=== PATIENT | female | born 1980 | race Caucasian/White ===

== ENCOUNTER 2019-03-28 08:45 | Outpatient (CLI) | payer OTHER, SELFPAY ==
--- NOTE | 2019-03-28 08:52 | IR_ITS ---
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 COMPARISON: No similar studies. FLUOROSCOPY TIME: 1.1 minutes. Procedure, risks and complications were explained to the patient. Risks including bleeding, infection , headaches, allergic reaction and seizures. Consent has been obtained. With the patient in prone position the skin over the lumbar region is cleansed with ChloraPrep and an esthetized with lidocaine. 22-gauge spinal needle is inserted into the thecal sac at the appropriate level determined by fluoroscopy. Omnipaque 240; 12 ml is injected slowly under fluoroscopy with no co mplications. Needle bevel is perpendicular to the longitudinal fibers of the dura. Stylet is reinsert ed prior to removal of the needle. Patient tolerated the procedure well. Patient will proceed to CT f or further evaluation. As indicated on the prior MRI, 4 lumbar vertebral bodies are present. This same number pattern will b e utilized for the myelogram. Normal lumbar alignment. No significant loss of disc space height or vertebral body height. With flex ion and extension there is no instability. Nerve roots are exiting without difficulty. Prior cholecystectomy. IR/[place] [id number] IMPRESSION: 1. Uncomplicated lumbar myelogram. 2. As described on the MRI only 4 lumbar type vertebral bodies are identified. Same numbering pattern will be utilized on the myelogram. 3. No significant stenosis or disc space disease. Please see CT report to hayes romo.
--- NOTE | 2019-03-28 08:52 | CT_ITS ---
WS: [id number] CT MYELOGRAM LUMBAR SPINE HISTORY: INTERVERTEBRAL DISC DISORDER WITH RADICULOPATHY OF LUMBOSACRAL SPINE. TECHNIQUE: Contiguous 2.5 mm axial imaging performed from T12 through the mid sacral level. Bone and soft tissue windows reviewed. Sagittal and coronal reformats are submitted and reviewed. DLP: 1933.[address] scans at [facility] use at least one of these dose optimization techniques: automat ed exposure control; mA and/or kV adjustment per patient size (includes targeted exams where dose is matched to clinical indication); or iterative reconstruction. COMPARISON: MRI 10/12/2017. 4 lumbar vertebral bodies have been described by MRI. This same numbering pattern will be utilized. L1-L4 normally aligned. No fractures or loss of disc space height or vertebral body height. No pars d efects. Nerve roots are well distributed in the thecal sac. L1-L2: Normal. L2-L3: Normal. L3-L4: Very minimal annular bulging without stenosis. L4-S1: Broad-based disc protrusion with slight flattening of the thecal sac. No significant stenosis. Paravertebral soft tissues are normal. Small amount of degenerative air in the SI joints bilaterally. No erosions. CT/CT lumbar spine w con [id number] IMPRESSION: 1. 4 lumbar type vertebral bodies as described by MRI on 10/12/2017. Similar nu mbering pattern used on the myelogram evaluation. 2. Minimal degenerative disc disease at L3-4 and L4 S1. No nerve root encroach ment or stenosis.
[2019-03-28] MEDS: iohexol 240 mg/mL 50 mL Btl INTRATHECA (09:45)
== END 2019-03-28 08:46 | disposition home or self-care (01) ==
PROVIDERS: Family Provider Family Medicine; PCP Family Medicine; Referring Provider Family Medicine; Visit Provider Licensed Practical Nurse
DX: M51.17 Intervertebral disc disorders with radiculopathy, lumbosacral region (principal); M47.896 Other spondylosis, lumbar region
CPT/HCPCS: 62304; 72120; 72132; J2001

== ENCOUNTER → 2019-04-18 08:31 | Outpatient (BNVA) | payer OTHER, SELFPAY | PROVIDERS: Family Provider Family Medicine; PCP Family Medicine; Visit Provider Anesthesiology | DX: M51.17 Intervertebral disc disorders with radiculopathy, lumbosacral region (principal); M79.652 Pain in left thigh; F17.210 Nicotine dependence, cigarettes, uncomplicated; Z79.891 Long term (current) use of opiate analgesic | CPT/HCPCS: 99214 ==

== ENCOUNTER → 2019-06-14 08:18 | Outpatient (BNVA) | payer OTHER, SELFPAY | PROVIDERS: Family Provider Family Medicine; PCP Family Medicine; Visit Provider Anesthesiology | DX: Z76.89 Persons encountering health services in other specified circumstances (principal) ==

== ENCOUNTER → 2020-02-20 15:22 | Outpatient (BNVA) | payer OTHER, SELFPAY | PROVIDERS: Family Provider Family Medicine; PCP Family Medicine; Visit Provider Emergency Medicine | DX: Z20.828 Contact with and (suspected) exposure to other viral communicable diseases (principal) | CPT/HCPCS: 87635 ==

== ENCOUNTER 2020-08-01 00:50 | Inpatient (IN) | payer SELFPAY ==
[2020-08-01] VITALS (107 sets, daily range): BP systolic 90–140; BP diastolic 46–91; PULSE 51–76; RESP 12–24; TEMP 36.5–37; O2SAT 92–99; BMI 35.7
--- NOTE | 2020-08-01 00:54 | CTR_ITS ---
PROCEDURE INFORMATION: Exam: CT Head Without Contrast Exam date and time: 08/01/2020 1:08 AM Age: 39 years old Clinical indication: Speech disturbance and weakness, extremity; Patient HX: Sudden onset of right sided weakness and aphasia. TECHNIQUE: Imaging protocol: Computed tomography of the head without contrast. Radiation optimization: All CT scans at this facility use at least one of these dose optimization techniques: automated exposure control; mA and/or kV adjustment per patient size (includes targeted exams where dose is matched to clinical indication); or iterative reconstruction. Other technique: STROKE PROTOCOL was implemented. COMPARISON: CT head wo con* [id number] 2015-11-29 08:18 RADIATION DOSE METRICS: Total DLP (mGy-cm): 839.33 FINDINGS: Brain: Normal. No hemorrhage. Unremarkable white matter. No mass effect. Cerebral ventricles: No ventriculomegaly. Bones/joints: Unremarkable. No acute fracture. Paranasal sinuses: Visualized sinuses are unremarkable. No fluid levels. Mastoid air cells: Visualized mastoid air cells are well aerated. Soft tissues: Unremarkable. CT/CT head wo con* [id number] IMPRESSION: No acute intracranial abnormality. ASSESSMENT: ASPECTS ([place] Stroke Program Early CT Score) is 10. Radiation Dose CTDIVOL = (mGy): DLP = 839.33 (mGy-cm)
--- NOTE | 2020-08-01 01:01 | ECG_ITS ---
[facility] Test Date: 2020-08-01 Pat Name: Latisha Christine Department: Room: 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 Measurements Intervals [place] Rate: 56 P: 30 CO: 167 QRS: 5 QRSD: 95 T: 29 QT: 400 QTc: 388 Interpretive Statements SINUS BRADYCARDIA WARNING: DATA QUALITY MAY AFFECT INTERPRETATION Compared to ECG 09/29/2016 16:37:50 Sinus rhythm no longer present Electronically Signed On 08-01-2020 23:45:26 CDT by Miller Wang M.D. [id number]
--- NOTE | 2020-08-01 01:03 | W.ED.NEUROSD ---
HPI - Neuro Symptoms/Deficit General: Chief Complaint: Neuro Symptoms/Deficit Stated Complaint: r sided numbess/difficulty speaking Time Seen by Provider: 08/01/20 00:55 Source: patient and family Mode of arrival: ambulatory Limitations: other History of Present Illness: HPI Narrative: 39-year-old female who is here with states starting last night at 11-11 30 was having all of a sudden severe slurred speech right-sided facial droop and weakness in the right side. states that he is unable to understand what she is saying except for few words. Patient here is trying to speak I can understand a few words but does have severe slurred speech. She is able to move her left side but has weakness of the right leg and right arm. Patient is unable to ambulate. She is no history of stroke in the past. Patient is not on any blood thinners. She denies headache. Patient is normotensive here. Denies any history of TIAs or stroke in the past. Associated symptoms: Deny chest pain, headache(s), nausea or vomiting Review of Systems Const: Denies: fever(s), chills, body aches or change in appetite Eyes: Denies: blurry vision or eye discomfort ENMT: Denies: throat pain or dental pain Card: Denies: chest pain Resp: Denies: dyspnea GI: Denies: abdominal pain, nausea, vomiting or diarrhea : Denies: dysuria Musc: Denies: neck pain or back pain Skin/Breast: Denies: rash Neuro: Reports: numbness in extremities, weakness in extremities and Slurred speech present; Denies: headache(s) Psych: Denies: depression Gab/Lymph: Denies: easy bruising All/Imm: Denies: urticaria PFSH ED PFSH: Medical History Chronic low back pain Encounter for long-term use of opiate analgesic Intervertebral disc disorder with radiculopathy of lumbosacral region Opioid contract exists Smoker Surgical History History of appendectomy History of cholecystectomy History of hysterectomy History of tubal ligation Family History Father Diabetes Hypertension Grandfather Lung cancer Other Cancer Social History (Updated 08/02/19 @ 08:34 by ANJANA Cortes Smoking and tobacco status: current every day smoker cigarettes Packs smoked per day: 0.5 Alcohol intake: never Lives independently: Yes Household members: spouse Marital status: Current occupational status: employed Current occupation: [employer] History of recent travel: No NIH stroke score NIHSS: Level Of Consciousness - 1a: 0 Level Of Consciousness Questions - 1b: Both Correct Level Of Consciousness Commands - 1c: Both Correct Best Gaze - 2: Normal Visual Dawson - 3: Partial Hemianopia Facial Palsy - 4: Partial Paralysis Motor Arm Right - 5: Drift Motor Arm Left - 5: No Drift Motor Leg Right - 6: Effort Against [place] Motor Leg Left - 6: No Drift Limb Ataxia - 7: Absent Sensory - 8: Normal Best Language - 9: Severe Aphasia Dysarthia - 10: Severe Dysarthia Extinction And Inattention - 11: 0 Score: Total Score: 10 Physical Exam Const: COMMON NORMALS: no acute distress and healthy appearing HENMT: COMMON NORMALS: normocephalic and atraumatic HEAD & SCALP: normocephalic and atraumatic Eye: COMMON NORMALS: Equal, round and reactive pupils present and EOMs intact bilaterally PUPIL: Yes Equal, round and reactive pupils present Neck/C-Spine: COMMON NORMALS: full ROM and supple Chest: COMMONS NORMALS: normal inspection of the chest and normal palpation of entire chest wall Resp: COMMON NORMALS: normal respiratory effort, No retractions, No use of accessory muscles and clear to auscultation bilaterally AUSCULTATION: clear to auscultation bilaterally Cardio: COMMON NORMALS: regular rate, regular rhythm and No murmurs present (Cardio) RATE: regular rate RHYTHM: regular rhythm GI: COMMON NORMALS: Normal to inspection, nondistended, normoactive bowel sounds present, Soft to palpation, non-tender and no masses PALPATION: Yes Soft to palpation Extremity: COMMON NORMALS: normal to inspection and full ROM Neuro: SPEECH: abnormal speech GAIT: No Normal gait present MOTOR EXAM: No 5/5 motor strength present throughout Psych: COMMON NORMALS: mental status grossly normal, Normal thought process present and cooperative THOUGHT PROCESS: Normal thought process present Skin: COMMON NORMALS: no rashes or lesions noted and no wounds GENERAL SKIN EXAM: no rashes or lesions noted Course Vital Signs: Vital signs: Vital Signs Temperature 97.9 F 08/01/20 00:58 Pulse Rate 56 L 05/20/21 02:09 Respiratory Rate 18 08/01/20 02:09 Blood Pressure 123/55 08/01/20 02:09 Pulse Oximetry 99 08/01/20 02:09 MDM - Neuro Symptoms/Deficit MDM Narrative: Medical decision making narrative: Patient presents here with likely CVA. Patient was given TPA here on 129 and is having improvements of her symptoms. Her blood pressures been under control. CTA showed no large clot. Spoke to hospitalist will admit to the ICU. I spoke to Dr. Peraza as well and will consult her officially. Lab Data: Labs: Lab Results 08/01/20 08/01/20 08/01/20 Range/Units 01:11 01:21 01:21 WBC 9.2 (4.0-10.0) 10^3/ uL RBC 4.46 (4.1-5.3) 10^6/u L Hgb 13.1 (11.5-15.3) g/dL Hct 38.4 (37.0-47.0) % MCV 86.1 (81-99) fL MCH 29.4 (28.0-34.0) pg MCHC 34.1 (30.0-36.0) g/dL RDW 12.4 (12.1-15.1) % Plt Count 267 (130-400) 10^3/c mm MPV 10.7 H (7.4-10.4) fL Neut % (Auto) 58.3 % Lymph % (Auto) 31.4 % [place] % (Auto) 6.1 % Eos % (Auto) 3.5 % Baso % (Auto) 0.4 % Neut # (Auto) 5.36 (1.8-7.7) 10^3/u L Lymph # (Auto) 2.9 (0.8-4.8) 10^3/u L [place] # (Auto) 0.6 (0.2-0.9) 10^3/u L Eos # (Auto) 0.3 (0.0-0.8) 10^3/u L Baso # (Auto) 0.0 (0.0-0.1) 10^3/u L Nucleated RBC % (a uto) 0 % Nucleated RBCs # 0.0 /100WBC PT 12.70 (12.1-14.9) SECO NDS INR 0.93 (0.8-1.2) APTT 27.6 (23.9-36.7) SECO NDS Sodium (136-145) mmol/L Potassium (3.5-5.1) mmol/L Chloride (98-107) mmol/L Carbon Dioxide (22-29) mmol/L Anion Gap (5-19) BUN (6-20) mg/dL Creatinine (0.5-0.9) mg/dL GFR Calculation (90-130) mL/min Glucose (65-115) mg/dL POC Glucose 105 (70-110) mg/dL Calculated Osmolal ity (285-295) mOsm/k g Calcium (8.5-10.5) mg/dL Total Bilirubin (0.15-1.2) mg/dL AST (0-32) U/L ALT (0-33) U/L Alkaline Phosphata se (35-105) IU/L Total Protein (6.6-8.7) g/dL Albumin (3.5-5.2) g/dL Globulin (1.3-4.6) g/dL 08/01/20 Range/Units 01:21 WBC (4.0-10.0) 10^3/ uL RBC (4.1-5.3) 10^6/u L Hgb (11.5-15.3) g/dL Hct (37.0-47.0) % MCV (81-99) fL MCH (28.0-34.0) pg MCHC (30.0-36.0) g/dL RDW (12.1-15.1) % Plt Count (130-400) 10^3/c mm MPV (7.4-10.4) fL Neut % (Auto) % Lymph % (Auto) % [place] % (Auto) % Eos % (Auto) % Baso % (Auto) % Neut # (Auto) (1.8-7.7) 10^3/u L Lymph # (Auto) (0.8-4.8) 10^3/u L [place] # (Auto) (0.2-0.9) 10^3/u L Eos # (Auto) (0.0-0.8) 10^3/u L Baso # (Auto) (0.0-0.1) 10^3/u L Nucleated RBC % (a uto) % Nucleated RBCs # /100WBC PT (12.1-14.9) SECO NDS INR (0.8-1.2) APTT (23.9-36.7) SECO NDS Sodium 141 (136-145) mmol/L Potassium 4.1 (3.5-5.1) mmol/L Chloride 107 (98-107) mmol/L Carbon Dioxide 24 (22-29) mmol/L Anion Gap 14.1 (5-19) BUN 14 (6-20) mg/dL Creatinine 0.5 (0.5-0.9) mg/dL GFR Calculation 138.1 H (90-130) mL/min Glucose 104 (65-115) mg/dL POC Glucose (70-110) mg/dL Calculated Osmolal ity 293 (285-295) mOsm/k g Calcium 8.8 (8.5-10.5) mg/dL Total Bilirubin 0.2 (0.15-1.2) mg/dL AST 11 (0-32) U/L ALT 10 (0-33) U/L Alkaline Phosphata se 65 (35-105) IU/L Total Protein 6.9 (6.6-8.7) g/dL Albumin 4.1 (3.5-5.2) g/dL Globulin 2.8 (1.3-4.6) g/dL Imaging Data^: CT Head: Attestation: I personally reviewed and interpreted this imaging study as follows: My impression: No acute normality Other CT: Attestation: I personally reviewed and interpreted this imaging study as follows: My impression: CT angio head neck no acute normality Critical Care Time Critical Care Time: Critical Care Time: Yes Total Critical Care Time: 35 Attestation: This case had a high probability of a clinically significant, sudden, or life threatening deterioration of this patient's condition which required my full and direct attention, intervention and personal management. 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
[2020-08-01 01:16] LABS: Glucose Point of Care 105 mg/dL (70-110)
--- NOTE | 2020-08-01 01:21 | CTR_ITS ---
PROCEDURE INFORMATION: Exam: CT Angiography Neck With Contrast Exam date and time: 08/01/2020 1:37 AM Age: 39 years old Clinical indication: Speech disturbance and weakness; Patient HX: Sudden onset of RT side weakness and aphasia. TECHNIQUE: Imaging protocol: Computed tomography angiography of the neck with contrast. 3D rendering (Not supervised by radiologist): MIP and/or 3D reconstructed images were created x the technologist. Radiation optimization: All CT scans at this facility use at least one of these dose optimization techniques: automated exposure control; mA and/or kV adjustment per patient size (includes targeted exams where dose is matched to clinical indication); or iterative reconstruction. Contrast material: OMNI 350; Contrast volume: 95 ml; Contrast route: INTRAVENOUS (IV); COMPARISON: No relevant prior studies available. RADIATION DOSE METRICS: Total DLP (mGy-cm): 2199.69 FINDINGS: Right common carotid artery: No stenosis. No dissection or occlusion. Right internal carotid artery: No stenosis of the extracranial segment. No dissection or occlusion. Right external carotid artery: No occlusion or stenosis of the origin. Right vertebral artery: No stenosis. No dissection or occlusion. Left common carotid artery: No stenosis. No dissection or occlusion. Left internal carotid artery: No stenosis of the extracranial segment. No dissection or occlusion. Left external carotid artery: No occlusion or stenosis of the origin. Left vertebral artery: No stenosis. No dissection or occlusion. Bones/joints: No acute fracture. Soft tissues: Normal. No significant soft tissue swelling. CT/CT angio headneck* [id number] IMPRESSION: Unremarkable. REFERENCES: NASCET CRITERIA. The degree of internal carotid artery stenosis is based on NASCET criteria. Normal is no stenosis. Mild is less than 50% stenosis. Moderate is 50-69% stenosis. Severe is 70% to 99% stenosis. Total occlusion is no detectable patent lumen. Radiation Dose CTDIVOL = (mGy): DLP = 2199.69 (mGy-cm)
[2020-08-01 01:28] LABS: Basophils % 0.4 %; Eosinophils # 0.3 10^3/uL (0.0-0.8); Eosinophils % 3.5 %; Hematocrit 38.4 % (37.0-47.0); Hemoglobin 13.1 g/dL (11.5-15.3); Lymphocytes # 2.9 10^3/uL (0.8-4.8); Lymphocytes % 31.4 %; Mean Corpuscular HGB Conc 34.1 g/dL (30.0-36.0); Mean Corpuscular Hemoglobin 29.4 pg (28.0-34.0); Mean Corpuscular Volume 86.1 fL (81-99); Mean Platelet Volume 10.7 fL (7.4-10.4); Monocytes # 0.6 10^3/uL (0.2-0.9); Monocytes % 6.1 %; Neutrophils # 5.36 10^3/uL (1.8-7.7); Neutrophils % 58.3 %; Nucleated Red Blood Cells % 0 %; Platelet Count 267 10^3/cmm (130-400); Red Blood Count 4.46 10^6/uL (4.1-5.3); Red Cell Distribution Width 12.4 % (12.1-15.1); White Blood Count 9.2 10^3/uL (4.0-10.0)
[2020-08-01] MEDS: iohexol 350 mg/mL 100 mL Btl IV (01:40)
[2020-08-01 01:52] LABS: Alanine Aminotransferase 10 U/L (0-33); Albumin Level 4.1 g/dL (3.5-5.2); Alkaline Phosphatase 65 IU/L (35-105); Aspartate Amino Transferase 11 U/L (0-32); Blood Urea Nitrogen 14 mg/dL (6-20); Calcium 8.8 mg/dL (8.5-10.5); Carbon Dioxide 24 mmol/L (22-29); Chloride 107 mmol/L (98-107); Globulin 2.8 g/dL (1.3-4.6); Glomerular Filtration Rate 138.1 mL/min (90-130); Glucose 104 mg/dL (65-115); INR 0.93 (0.8-1.2); Osmolality Calculated 293 mOsm/kg (285-295); Sodium 141 mmol/L (136-145); Total Bilirubin 0.2 mg/dL (0.15-1.2); Total Protein 6.9 g/dL (6.6-8.7)
[2020-08-01 01:53] LABS: Partial Thromboplastin Time 27.6 SECONDS (23.9-36.7)
[2020-08-01 01:57] LABS: Anion Gap 14.1 (5-19); Potassium 4.1 mmol/L (3.5-5.1)
[2020-08-01 02:47] LABS: Add Urine Microscopic? NO; Charge for UA Resulting for Rev
[2020-08-01 02:48] LABS: Urine Appearance Clear (CLEAR); Urine Color Yellow (Yellow)
[2020-08-01 02:49] LABS: Bilirubin Urine Neg (Negative); Blood Urine Neg (Negative); Glucose Urine UA Norm (Normal); Ketones Urine Negative (Negative); Leukocyte Esterase Urine Negative (Negative); Nitrate Urine Negative (Negative); Protein Urine Neg (Negative); Urobilinogen Urine Norm (Negative); pH Urine 6.5 (5-7)
[2020-08-01 02:58] LABS: Amphetamines Screen Urine Negative (Negative); Barbiturates Screen Urine Negative (Negative); Benzodiazepines Screen Urine Negative (Negative); Cocaine Screen Urine Negative (Negative); Opiate Screen Urine Negative (Negative); PCP Screen Urine Negative (Negative); THC Screen Urine Negative (Negative)
--- NOTE | 2020-08-01 02:59 | P.HP_ITS ---
Providers/Chief Complaint Admitting Physician: Isiah Catalan Primary Care Provider: Burak Goodman MD Chief Complaint: r sided numbess/difficulty speaking History of Present Illness Latisha Christine is a 39 year old female with no significant past medical history who presents to emergency room due to sudden onset of slurred speech, aphasia, right-sided facial droop and right-sided weakness. The symptoms started suddenly at about 11:30 PM. On presentation her NIH score was assessed at 10. Stroke alert was called. The patient underwent CT and CTA head and neck. No acute ab normalities were identified. Dr. Peraza, neurologist was contacted by ED physician. Decision was made to administer TPA. She already has received it. She reports some improvement of her symptoms. However she still has aphasia. History is mostly provided by her who is at the bedside. She reports weakness in the right upper and right lower extremity, right side of the face. She denies any similar episodes in the past. She denies any associated sensory loss or imbalance. No headache. No chest pain or shortness of breath. No nausea or vomiting. Review of Systems General: Reports: 10 or more systems reviewed and unremarkable except in HPI and below Medications/Allergies Allergies Allergy/AdvReac Type Severity Reaction Status Date / Time gabapentin AdvReac Mild night dennis Verified 08/01/20 01:21 PFSH Acute PFSH: Medical History Chronic low back pain Encounter for long-term use of opiate analgesic Intervertebral disc disorder with radiculopathy of lumbosacral region Opioid contract exists Smoker Surgical History History of appendectomy History of cholecystectomy History of hysterectomy History of tubal ligation Family History Father Diabetes Hypertension Grandfather Lung cancer Other Cancer Social History (Updated 08/02/19 @ 08:34 by Naz Dempsey LPN) Smoking and tobacco status: current every day smoker cigarettes Packs smoked per day: 0.5 Alcohol intake: never Lives independently: Yes Household members: spouse Marital status: Current occupational status: employed Current occupation: [employer] History of recent travel: No Vitals/I&O/Wt Last Vital Signs Temp 98.1 F 08/01/20 02:55 Pulse 62 05/20/21 02:55 Resp 18 08/01/20 02:55 BP 116/46 08/01/20 02:55 Pulse Ox 97 08/01/20 02:55 07/31/20 07/31/20 08/01/20 14:59 22:59 06:59 Intake Total 100 / 100 Balance 100 / 100 Weight last 48 hrs Weight 100.471 kg Physical Exam Narrative: EXAM NARRATIVE: Patient is awake alert oriented. No acute distress. Mood and affect are appropriate. Responses are adequate. Skin is warm and dry. Moist mucous membranes Eyes PERRL, extraocular muscles are intact. Facial symmetry with the weakness on the right side. 2-3 out of 5 weakness in the right upper extremity and right lower extremity. Cerebellar testing is limited due to weakness. Expressive aphasia is present. Neck is supple. No JVD Heart S1, S2, regular Lungs are clear to auscultation bilaterally Abdomen soft, nontender, bowel sounds are present Extremities no edema cyanosis or calf tenderness bilaterally Data : 08/01/20 01:21 08/01/20 01:21 Other Labs: Laboratory Results WBC 9.2 10^3/uL (4.0-10.0) 08/01/20 01:21 RBC 4.46 10^6/uL (4.1-5.3) 08/01/20 01:21 Hgb 13.1 g/dL (11.5-15.3) 08/01/20 01:21 Hct 38.4 % (37.0-47.0) 08/01/20 01:21 MCV 86.1 fL (81-99) 08/01/20 01:21 MCH 29.4 pg (28.0-34.0) 08/01/20 01:21 MCHC 34.1 g/dL (30.0-36.0) 08/01/20 01:21 RDW 12.4 % (12.1-15.1) 08/01/20 01:21 Plt Count 267 10^3/cmm (130-400) 08/01/20 01:21 MPV 10.7 fL (7.4-10.4) H 08/01/20 01:21 Neut % (Auto) 58.3 % 08/01/20 01:21 Lymph % (Auto) 31.4 % 08/01/20 01:21 [place] % (Auto) 6.1 % 08/01/20 01:21 Eos % (Auto) 3.5 % 08/01/20 01:21 Baso % (Auto) 0.4 % 08/01/20 01:21 Neut # (Auto) 5.36 10^3/uL (1.8-7.7) 08/01/20 01:21 Lymph # (Auto) 2.9 10^3/uL (0.8-4.8) 08/01/20 01:21 [place] # (Auto) 0.6 10^3/uL (0.2-0.9) 08/01/20 01:21 Eos # (Auto) 0.3 10^3/uL (0.0-0.8) 08/01/20 01:21 Baso # (Auto) 0.0 10^3/uL (0.0-0.1) 08/01/20 01:21 Nucleated RBC % (auto) 0 % 08/01/20 01: Nucleated RBCs # 0.0 /100WBC 08/01/20 01: PT 12.70 SECONDS (12.1-14.9) 08/01/20 01: INR 0.93 (0.8-1.2) 08/01/20 01: APTT 27.6 SECONDS (23.9-36.7) 08/01/20 01:21 Sodium 141 mmol/L (136-145) 08/01/20 01:21 Potassium 4.1 mmol/L (3.5-5.1) 08/01/20 01: Chloride 107 mmol/L (98-107) 08/01/20 01: Carbon Dioxide 24 mmol/L (22-29) 08/01/20 01:21 Anion Gap 14.1 (5-19) 08/01/20 01:21 BUN 14 mg/dL (6-20) 08/01/20 01:21 Creatinine 0.5 mg/dL (0.5-0.9) 08/01/20 01:21 GFR Calculation 138.1 mL/min (90-130) H 08/01/20 01:21 Glucose 104 mg/dL (65-115) 08/01/20 01:21 POC Glucose 105 mg/dL (70-110) 05/20/21 01:11 Calculated Osmolality 293 mOsm/kg (285-295) 08/01/20 01:21 Calcium 8.8 mg/dL (8.5-10.5) 08/01/20 01:21 Total Bilirubin 0.2 mg/dL (0.15-1.2) 08/01/20 01:21 AST 11 U/L (0-32) 08/01/20 01:21 ALT 10 U/L (0-33) 08/01/20 01:21 Alkaline Phosphatase 65 IU/L (35-105) 08/01/20 01:21 Total Protein 6.9 g/dL (6.6-8.7) 08/01/20 01:21 Albumin 4.1 g/dL (3.5-5.2) 08/01/20 01:21 Globulin 2.8 g/dL (1.3-4.6) 08/01/20 01:21 Urine Color Yellow (Yellow) 08/01/20 02:45 Urine Appearance Clear (CLEAR) 08/01/20 02:45 Urine pH 6.5 (5-7) 08/01/20 02:45 Ur Specific [place] 1.000 (1.005-1.030) L 08/01/20 02:45 Urine Protein Neg (Negative) 08/01/20 02:45 Urine Glucose (UA) Norm (Normal) 08/01/20 02:45 Urine Ketones Negative (Negative) 08/01/20 02:45 Urine Blood Neg (Negative) 08/01/20 02:45 Urine Nitrate Negative (Negative) 08/01/20 02:45 Urine Bilirubin Neg (Negative) 08/01/20 02:45 Urine Urobilinogen Norm mg/dL (Negative) 08/01/20 02:45 Ur Leukocyte Esterase Negative (Negative) 08/01/20 02:45 Urine Opiates Screen Negative ng/mL (Negative) 08/01/20 02:45 Ur Barbiturates Screen Negative ng/mL (Negative) 08/01/20 02:45 Ur Phencyclidine Scrn Negative ng/mL (Negative) 08/01/20 02:45 Ur Amphetamines Screen Negative ng/mL (Negative) 08/01/20 02:45 U Benzodiazepines Scrn Negative ng/mL (Negative) 08/01/20 02:45 Urine Cocaine Screen Negative ng/mL (Negative) 08/01/20 02:45 U Marijuana (THC) Screen Negative ng/mL (Negative) 08/01/20 02:45 Please see official radiology report for CT head and CTA head and neck when it is available. Ordering EKG. Please follow-up the results. A&P Additional A&P Information 39-year-old female with no significant past medical history who presents with expressive aphasia, right-sided weakness. NIH score on presentation is 10. Status post TPA. CVA. Status post TPA. Will go to ICU for monitoring. We will follow stroke protocol. Nicardipine drip as needed. However the blood pressure is stable at this time. The patient will be seen by Dr. Peraza in the morning. Lipitor, fasting lipids in the morning. MRI and echo. DVT prophylaxis. Tetanus status. No anticoagulation due to TPA. CODE STATUS. Full code. The plan of care was discussed with the patient and her at the bedside. They verbalized understanding and agreement. Critical care time spent on this encounter is 50 minutes Attestations Medical Necessity Statement*: Based on my assessment of patient's current condition she will require more than 2 midnights in the hospital. Coding Level of Care Code Acute Slot Floorperson for Ani Sparrow
--- NOTE | 2020-08-01 03:06 | ECG_ITS ---
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 Measurements Intervals [place] Rate: 60 P: 33 AR: 187 QRS: -5 QRSD: 104 T: 28 QT: 412 QTc: 412 Interpretive Statements SINUS RHYTHM INTERPRETATION BASED ON A DEFAULT AGE OF 40 YEARS Compared to ECG 09/29/2016 16:37:50 No significant changes Electronically Signed On 08-02-2020 0:05:04 CDT by Miller Wang M.D. [id number] f
[2020-08-01 05:23] LABS: Chol HDL Ratio 4.33 mg/dL (0.0-4.40); Cholesterol 186 mg/dL (0-200); HDL Cholesterol 43 mg/dL (60-100); LDL Cholesterol Calculated 123 mg/dL (50-129); LDL HDL Ratio 2.86 RATIO (0.00-3.22); Triglycerides 101 mg/dL (0-150)
[2020-08-01 05:49] LABS: Estmated Average Glucose 105; Hemoglobin A1C 5.3 % (4.0-6.0)
--- NOTE | 2020-08-01 06:31 | PC.NURSE ---
SHIFT SUMMARY Patient arrived on unit at 0305 this morning from ER by stretcher after receiving TPA at 0130 in the ER for right sided weakness. Upon arriving on floor TPA/Neuro checks were initiated by this nurse every 15 minutes for 2 hours, which stopped at 0330 and moved to every 30 minute neuro checks for 6 hours. Alert and oriented x4. Needle stick precautions in place due to TPA administration.
--- NOTE | 2020-08-01 07:56 | P.PNCC_ITS ---
Stroke Alert Activation ED Arrival Date: 08/01/20 ED Arrival Time: 00:58 ED Physican at Bedside: 00:58 Last Known Normal/at Baseline: 1-2 hours ago Other Last Known Well Infomation: Stroke team was activated at 1 AM for this 39-year-old woman who arrived with right hemiplegia and aphasia. She was seen immediately by Dr. Turcios. CT scan of the head did not show an acute bleed or any other abnormalities. Her CAT scan was completed at 0108. Her blood pressure was slightly elevated. Dr. Turcios and I agreed that based upon her high NIH stroke scale score of 16 and lack of any contraindications, TPA should be recommended and administered. That was done and she was admitted to ICU. Stroke Alert Activated by: Triage. She came through the front door. Stroke Alert Activation Time: 01:00 Stroke MD @ Bedside Time: 01:01 NIH Stroke Scale Time: 01:05 NIH Stroke Scale Score: NIH Stroke Scale Score: 10 Stroke Alert Data/Treatment Time to CT of Head: 01:01 CT Results Time: 01:08 CT Impression: normal Stroke Risk Factors: obesity and depression tPA Started Time: tPA Started - Time: 01:32 tPA Admin Prior to Arrival: No Standardized Stroke Orders Used: Yes Critical Care Time Critical Care Time: less than 30 mins Additional information about critical care time: Telemetry stroke A&P Assessment and plan (1) Left acute arterial ischemic stroke, MCA (middle cerebral artery): 39-year-old woman presented with symptoms of left middle cerebral artery stroke including nearly flaccid right hemiplegia and aphasia. Her blood pressure was elevated but within the parameters for TPA administration. Her CT of the head did not show an acute hemorrhage. Her [id number] glucose was unremarkable. Dr. Turcios reviewed the history with me and the physical findings and we agreed that she should receive TPA. TPA was administered within 30 minutes of her arrival. There was delay because she came through the front door and had to have an IV started. Her symptoms were already improving before she left the emergency department and she is admitted to ICU. 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
--- NOTE | 2020-08-01 08:05 | PC.OT ---
OT EVALUATION ORDERS RECEIVED. DUE TO TPA AT 0130 PER CHART; WILL HOLD OT EVALUATION UNTIL TOMORROW.
--- NOTE | 2020-08-01 08:46 | PC.CHAP ---
Pastoral Care Encounter/Spiritual Assessment Type of Contact [] Declined ripsawyer visit [] Patient/Family/Request visit [] Outpatient visit [] Follow-up visit [] Physician referral [] Code/Alert [x] Routine visit [] Staff referral [] Actively dying [] Patient sleeping [x] Family support [] [] Out of room [] Palliative care [] [x] Receiving care in room [] Pre-surgical visit [] Trauma [] Long length of stay [x] ICU visit [] Other: Relational/Emotional Strength [] Patient feels connected with others/family/visitors/staff [] Distress [] Loneliness/isolation [] Abandonment Spirituality of Patient [] Person of [place] [] Attends Voodoo of their [place] [] Believes in Prayer [] Reads Bible or Sikh materials [] There are Spiritual issues to be addressed Laundry Routeman Interventions [x] Prayer [] Active listening [] Non-anxious presence [] Spiritual/emotional support [] Crisis/trauma care [] Spiritual counseling [] Bereavement support [] Provided bereavement packet [] Provided Bible/devotional materials [] Provided toy/stuffed animal, coloring book to patient or family member [] Provided Communion [] Anointing/[place] [] Salvation [x] Completed spiritual assessment [] Other: Impact on Illness or Injury [] Angry [] Fearful [] Anxious [] Often cries [] Exhaustion [] Unable to work [] Unable to attend mu-ism [] Unable to walk/stand [] Unable to read [] Unable to drive [] Unable to eat/drink [] Unable to sleep [] Unable to be with family [] Patient intubated [] Other: Summary Time spent with patient
[2020-08-01] MEDS: acetaminophen 325 mg Tablet 650 MG PO ×4 (08:54→23:46)
[2020-08-01] MEDS: diazePAM 5 mg Tablet 10 MG PO (09:54)
--- NOTE | 2020-08-01 10:15 | MR_ITS ---
WS: [id number] MRI HEAD WITH CONTRAST TECHNIQUE: Sagittal T1, T2 axial, T2 axial FLAIR, axial susceptibility weighted imaging, axial diffus ion weighted images, and coronal T2 images were obtained. Pre and post-T1 axial and post T1 coronal i mages. ADC and FSPGR images. CLINICAL INFORMATION: CVA COMPARISON: CT and CTA August 01, 2020 FINDINGS: Some images degraded by patient motion. No evidence of restricted diffusion to suggest acute ischemia . Ventricular system and basal cisterns are patent. No hemosiderin on susceptibly weighted images. No rmal posterior fossa. Normal vascular flow voids at the skull base. No extra-axial fluid collections. No evidence of mass or mass effect. Mild mucosal thickening with partial opacification of the paranasal sinuses worse in the ethmoid air cells. Mastoid air cells are well aerated. No suspicious intracranial signal abnormalities. Normal gr ay-white differentiation. Normal optic chiasm and pituitary infundibulum. Temporal lobes and hippocampal formations are normal in appearance. No abnormal gadolinium enhancement. Normal dural venous sinuses. MR/MR head wo/w con [id number] IMPRESSION: 1. No evidence of restricted diffusion to suggest acute ischemia. 2. No suspicious intracranial signal abnormalities. 3. No hemosiderin on susceptibly weighted images. 4. No abnormal gadolinium enhancement. 5. Mucosal thickening with inflammatory changes in the paranasal sinuses worse in the ethmoid air cells.
[2020-08-01] MEDS: gadobenate dimeglumine 20 mL vial IV (11:14)
--- NOTE | 2020-08-01 16:37 | PM.PN ---
Subjective Subjective: Interval history: overnight labs and H&P reviewed. Medications: Reviewed: Yes Vitals/I&O/Wt Last Vital Signs Temp 97.7 F 08/01/20 11:30 Pulse 67 08/01/20 14:30 Resp 18 08/01/20 14:30 BP 120/73 08/01/20 14:30 Pulse Ox 96 08/01/20 14:30 08/01/20 08/01/20 08/01/20 06:59 14:59 22:59 Intake Total 100 / 100 300 / 300 Output Total 1300 / 1300 Balance 100 / 100 -1000 / -1000 Weight last 48 hrs Weight 100.471 kg Physical Exam Narrative: EXAM NARRATIVE: GEN: Awake, alert and oriented, no acute distress CVS: S1S2 N RS: CTA B/L Abd: Soft, nt/nd , bs+ FINANCIAL INTERN: R side hemiparesis, slurred speech Data : 08/01/20 01:21 08/01/20 01:21 A&P Additional A&P Information 39-year-old female with no significant past medical history who presents with expressive aphasia, right-sided weakness. NIH score on presentation is 10. Status post TPA. CVA. Status post TPA overnight. [address] head tonight at 11pm. to start ASA 24 hrs post tPA. BP currently well controlled slightly improving right sided weakness DVT prophylaxis. contraindicated for now CODE STATUS. Full code. 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
[2020-08-01] MEDS: atorvastatin 40 mg Tablet 20 MG PO (21:18)
--- NOTE | 2020-08-01 23:00 | CTR_ITS ---
PROCEDURE INFORMATION: Exam: CT Head Without Contrast Exam date and time: 08/01/2020 11:42 PM Age: 39 years old Clinical indication: Weakness, extremity; Right; Additional info: 24 hr post tpa follow up TECHNIQUE: Imaging protocol: Computed tomography of the head without contrast. Radiation optimization: All CT scans at this facility use at least one of these dose optimization techniques: automated exposure control; mA and/or kV adjustment per patient size (includes targeted exams where dose is matched to clinical indication); or iterative reconstruction. COMPARISON: CT head wo con* [id number] 08/01/2020 1:08 AM RADIATION DOSE METRICS: Total DLP (mGy-cm): 825.42 FINDINGS: Brain: No evidence of acute infarct. No mass or mass effect. No intra axial hemorrhage. No extra axial fluid collection or hemorrhage. Cerebral ventricles: Symmetric and without enlargement. Bones/joints: No acute fracture. Paranasal sinuses: Visualized sinuses show inflammatory mucosal disease. Mastoid air cells: Visualized mastoid air cells are well aerated. Soft tissues: No concerning abnormalities. CT/CT head wo con* [id number] IMPRESSION: No acute intracranial abnormality. Radiation Dose CTDIVOL = (mGy): DLP = 825.42 (mGy-cm)
[2020-08-02] VITALS (21 sets, daily range): BP systolic 88–118; BP diastolic 32–75; PULSE 52–71; RESP 15–17; TEMP 36.6–37.1; O2SAT 93–97
[2020-08-02] MEDS: zolpidem 5 mg Tablet PO (00:32)
[2020-08-02] MEDS: acetaminophen 325 mg Tablet 650 MG PO ×3 (04:14→13:54)
[2020-08-02 05:50] LABS: Estmated Average Glucose 100; Hemoglobin A1C 5.1 % (4.0-6.0)
--- NOTE | 2020-08-02 06:00 | USCV_ITS ---
Nanci Latisha Age: 39 Gender: F : 1980 Exam Date: 08/02/2020 05:19 Ordering Phys: Isiah Catalan MD Technologist: FATMATA Exam Location: [facility] [place] Indication: CVA BP: 102 / 65 HR: 54 Rhythm: Sinus Technical Quality: Adequate MEASUREMENTS (Male / Female) Normal Values 2D ECHO LV Diastolic Diameter PLAX 4.0 cm 4.2 - 5.9 / 3.9 - 5.3 cm LV Systolic Diameter PLAX 2.4 cm LV Chamber Size 3.1 cm IVS Diastolic Thickness 1.1 cm 0.6 - 1.0 / 0.6 - 0.9 cm IVS Systolic Thickness 1.8 cm LVPW Diastolic Thickness 1.0 cm 0.6 - 1.0 / 0.6 - 0.9 cm LVPW Systolic Thickness 1.4 cm RV Chamber Size 3.7 cm LVOT Diameter 2.1 cm LV Ejection Fraction 2D Teich 72.8 % LV Ejection Fraction MOD 2C 51.7 % LV Ejection Fraction 2C AL 50.1 % LA Diameter 3.4 cm LA Width 2.7 cm LA Height 4.1 cm RA Width 2.9 cm RA Height 3.8 cm Aorta at Sinotubular Diameter 2.9 cm M-MODE LV Diastolic Diameter MM 4.1 cm 4.2 - 5.9 / 3.9 - 5.3 cm LV Systolic Diameter MM 2.9 cm LV Ejection Fraction MM Teich 55.1 % IVS Diastolic Thickness MM 1.2 cm 0.6 - 1.0 / 0.6 - 0.9 cm IVS Systolic Thickness MM 1.6 cm LVPW Diastolic Thickness MM 1.1 cm 0.6 - 1.0 / 0.6 - 0.9 cm LVPW Systolic Thickness MM 1.1 cm Aortic Annulus Diameter 3.2 cm LA Ao Ratio MM 1.3 MV E Point Septal Separation 0.5 cm DOPPLER AV Peak Velocity 100.0 cm/s LVOT Peak Velocity 71.0 cm/s AV Area Cont Eq vti 2.5 cm squared AV Area Cont Eq pk 2.5 cm squared MV Area PHT 3.6 cm squared Mitral E to A Ratio 1.0 MV E' Velocity 36.5 cm/s Mitral E to MV E' Ratio 5.5 Mitral E to LV E' Lateral Ratio 4.7 Mitral E to LV E' Septal Ratio 6.6 TR Peak Velocity 152.4 cm/s TR Peak Gradient 9.3 mmHg TR Mean Velocity 116.5 cm/s TR Mean Gradient 6.3 mmHg TR Velocity Time Integral 51.6 cm TV Peak E Velocity 73.0 cm/s Right Atrial Pressure 3.0 mmHg Pulmonary Artery Systolic Pressu 12.3 mmHg PV Peak Velocity 46.0 cm/s RV Acceleration Time 0.2 s RV Ejection Time 0.4 s RV AcT/ET 0.4 FINDINGS Left Ventricle Normal left ventricular size. LV systolic function is normal with EF of 55-60%. No regional wall motion abnormalities. Normal diastolic filling pattern. Right Ventricle The right ventricle is normal in size and function. Right Atrium The right atrium is normal in size. Left Atrium The left atrium is normal in size. Mitral Valve Grossly normal without significant stenosis or prolapse. There is no mitral regurgitation. Aortic Valve Grossly normal without significant sclerosis or stenosis. There is no aortic regurgitation. Tricuspid Valve Structurally normal tricuspid valve without significant stenosis or regurgitation. Insufficient TR jet to calculate RVSP Pulmonic Valve Structurally normal pulmonic valve without significant stenosis. There is no pulmonic regurgitation. Pericardium Normal pericardium without effusion. Aorta Normal ascending aorta dimension. CONCLUSIONS This is a limited quality echocardiogram because of poor ultrasonic windows LV systolic function is normal with EF of 55-60% Diastolic function is normal No gross significant valvular heart disease No comparison studies are available Mitchel Pemberton MD (Electronically Signed) Final Date: 02 Aug 2020 14:09 S
[2020-08-02 06:24] LABS: Chol HDL Ratio 4.89 mg/dL (0.0-4.40); Cholesterol 186 mg/dL (0-200); HDL Cholesterol 38 mg/dL (60-100); LDL Cholesterol Calculated 116 mg/dL (50-129); LDL HDL Ratio 3.05 RATIO (0.00-3.22); Triglycerides 162 mg/dL (0-150)
--- NOTE | 2020-08-02 06:27 | PC.NURSE ---
CT [address], called CT to see if they were ready, requested that we come in 20 minutes. Patient taken to CT. Report placed in chart.
--- NOTE | 2020-08-02 12:10 | PC.OT ---
Attempted evaluation in A.M. Patient sleeping and did not rouse, will attempt later.
--- NOTE | 2020-08-02 15:22 | PM.PN ---
Subjective Subjective: Interval history: I saw this patient on the morning of 08/01/2020 and examined her. She has been under an enormous amount of stress lately. Her was at the bedside. We reviewed her CT scan of the head from 08/01/2020 and her CTA from early early this morning. Vitals/I&O/Wt Last Vital Signs Temp 97.8 F 08/02/20 11:00 Pulse 65 08/02/20 14:00 Resp 17 08/02/20 14:00 BP 109/71 08/02/20 14:00 Pulse Ox 95 08/02/20 14:00 08/02/20 08/02/20 08/02/20 06:59 14:59 22:59 Intake Total 480 / 480 Output Total 500 / 2250 Balance -500 / -1150 480 / 480 Weight last 48 hrs Weight 221 lb 8 oz Physical Exam Narrative: EXAM NARRATIVE: GENERAL: The patient was overweight with a healthy appearance and appropriately groomed. MENTAL STATUS: Orientation was full to 10 of 10 questions of orientation. Speech was fluent without word hesitation. No difficulty following a complex command. The affect was anxious. She has good insight.. CRANIAL NERVES: She could count fingers each eye in all coyle. Visual coyle were full to confrontation, direct and consensual. Extraocular movements were full without nystagmus. PERRLA. She has pulling of the face to the left. This is not consistent with facial weakness. Facial sensation was intact in all three distributions of the fifth cranial nerve bilaterally to touch. Tongue and palate were midline at rest and with protrusion of the tongue and elevation of the palate. Shoulders were symmetric at rest and with shoulder shrug. MOTOR: She was not moving the right side well but if I hold her arm up she can keep it up against gravity but cannot raise it from the bed. Similar findings with the right foot although if she lifted both legs at the same time she did better. SENSATION: Subjective reduction in pin on the right. COORDINATION: No cerebellar signs DEEP TENDON REFLEXES: 2/4 throughout. Toes downgoing bilaterally GAIT: Not tested CARDIOVASCULAR: The heart sounds were normal without murmur or gallop. Regular rate and rhythm. Data : 08/01/20 01:21 08/01/20 01:21 A&P Assessment and plan (1) Right sided weakness: Status: Acute (2) Cerebrovascular accident: She presented with acute onset of right-sided weakness and speech deficit. She had a significant NIH stroke scale score and her findings were suggestive of left middle cerebral artery ischemia. With the luxury of time to do a full exam this morning I am finding multiple functional findings. Her MRI scan, which was performed several hours after I saw her but I have reviewed at the time of this dictation, shows no sign of cerebral ischemia. I told the patient that I was hopeful that this was a stress related stroke and not a blood clot. The [place] [employer] and other authorities recommend that if it is not clear whether the lesion is functional or ischemic it is better to administer TPA and we administered TPA believing that this was an ischemic stroke. It is possible that she has left over findings even though there is no sign of permanent damage based upon MRI. I will be glad to follow the patient in neurology clinic after discharge. Status: Acute Qualifiers: CVA mechanism: unspecified Qualified Code(s): I63.9 - Cerebral infarction, unspecified Attestations Medical Necessity Statement*: Acute onset of right-sided weakness treated with TPA for stroke Time Spent in Patient Care: Greater than 35 minutes I reviewed her MRI of the brain, CT angiogram and CT of the head and I reviewed these findings with the patient and her and discussed her diagnosis at length. 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
--- NOTE | 2020-08-02 17:30 | PC.RESP ---
Smoking Cessation information sent to patient.
--- NOTE | 2020-08-02 19:30 | P.DS_ITS ---
Discharge Providers Date of Admission: 08/01/20 02:06 Date of Discharge: August 02, 2020 Attending Provider at Admission: Isiah Catalna Attending Provider at Discharge: Sylvia Olmos MD Primary Care Provider: Burak Goodman MD Diagnoses at Discharge Discharge Diagnosis (1) Right sided weakness: Status: Acute (2) Cerebrovascular accident: Status: Acute Qualifiers: CVA mechanism: unspecified Qualified Code(s): I63.9 - Cerebral infarction, unspecified Reason for Visit Reason for Visit: r sided numbess/difficulty speaking I63.512 12293 Hospital Course Hospital Course 39-year-old woman who arrived with right hemiplegia and aphasia at 1am on 08/01/20. CT scan of the head did not show an acute bleed or any other abnormalities. based upon her high NIH stroke scale score of 16 and lack of any contraindications, TPA was recommended and administered. That was done and she was admitted to ICU. Her findings were suggestive of left middle cerebral artery ischemia.Her MRI scan, which was performed several hours after shows no sign of cerebral ischemia. Neurology has been following, possible that this was a stress related stroke and not a blood clot. She had some functional findings on her exam. AHA guidelines recommend that if it is not clear whether the lesion is functional or ischemic it is better to administer TPA and believing that this was an ischemic stroke patient received tPA appropriately. It is possible that she has left over findings even though there is no sign of permanent damage b ased upon MRI. [address] head was without signs of any acute bleeding. 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 Discharge Data Data Completed and Pending: Completed Studies During Hospitalization Category Date Time Status CT angio headneck * [id number]/[id number] Urge nt Cat Scan 08/01/20 01:[address] head wo con* 7 0450 Routine Cat Scan 08/01/20 23:[address] head wo con* 7 0450 Urgent Cat Scan 08/01/20 00:54 Completed MR head wo/w con [id number] Routine MRI 08/01/20 10:15 Completed CV echo complete* [id number] Routine Ultrasound 08/02/20 06:00 Completed Labs from last 24 hours 08/02/20 08/02/20 08/02/20 05:45 03:55 03:55 Estimat Average Gl ucose 100 Hemoglobin A1c 5.1 Triglycerides 162 H Cancelled Cholesterol 186 Cancelled LDL Cholesterol, C alc 116 Cancelled HDL Cholesterol 38 L Cancelled LDL/HDL Ratio 3.05 Cancelled Cholesterol/HDL Ra natalia 4.89 H Cancelled Vitals: Last Vital Signs Temp 98.1 F 08/02/20 18:53 Pulse 60 08/02/20 18:53 Resp 17 08/02/20 18:53 BP 116/70 08/02/20 18:53 Pulse Ox 95 08/02/20 18:53 Discharge Plan Discharge Patient Disposition: Home Condition: Stable Prescriptions: New atorvastatin 40 mg Tablet 40 mg PO BEDTIME 30 Days Qty: 30 RF: 0 Aspirin Low Dose 81 mg tablet,delayed release (DR/EC) 81 mg PO DAILY Qty: 30 RF: 0 Discharge Orders: Discharge Order (Routine); Ordered 08/02/20 Ordered By: Sylvia Olmos Other Ambulatory Orders: DME: Jameel (Order) Location: None Selected Ordered By: Sylvia Olmos Referrals: Coreen Peraza MD [Physician] - 1 month Burak Goodman MD [Primary Care Provider] - 4-7 days Discharge Diet: Cardiac Discharge Activity: As per PT/OT instructions Patient Instructions: Aspirin (By mouth), Atorvastatin (By mouth), Self Care Measures After a Stroke (DC), Opioid Safety Discharge Attestations Time Spent in Discharge Care*: greater than 30 min Quality Metrics Clinical Quality Measures During this hospital stay, did patient experience: Stroke Contraindication to Antithrombotic: Antithrombotic prescribed Contraindication to Anticoagulation: Overlap treatment not indicated Contraindication to Statin: Statin prescribed Contraindication to tPA: tPA given Coding Level of Care Code Acute Chg FW DC note Diagnoses Right sided weakness R53.1 Cerebrovascular accident I63.9 CVA mechanism: unspecified
== END 2020-08-02 19:05 | disposition home or self-care (01) | DRG 62 ==
LOC: ER 02:07 → ICU 02:55
PROVIDERS: Admitting Provider Internal Medicine; Emergency Provider Emergency Medicine; PCP Family Medicine; Visit Provider Student in an Organized Health Care Education/Training Program
DX: I63.89 Other cerebral infarction (principal); G81.91 Hemiplegia, unspecified affecting right dominant side; R47.81 Slurred speech; R29.810 Facial weakness; R29.716 NIHSS score 16; G89.29 Other chronic pain; M54.17 Radiculopathy, lumbosacral region; F17.210 Nicotine dependence, cigarettes, uncomplicated
CPT/HCPCS: 36415; 36416; 70450; 70496; 70498; 70553; 80053; 80061; 80306; 81003; 82962; 83036; 85025; 85610; 85730; 92507; 92523; 92526; 92610; 93005; 93306; 96374; 97110; 97161; 97530; 99291; A9577; J2997; Q9967

== ENCOUNTER 2020-09-02 08:13 | Outpatient (CLI) | payer SELFPAY ==
[2020-09-02 08:57] LABS: Basophils # 0.1 10^3/uL (0.0-0.1); Basophils % 0.8 %; Eosinophils # 0.3 10^3/uL (0.0-0.8); Hematocrit 39.5 % (37.0-47.0); Hemoglobin 13.5 g/dL (11.5-15.3); Lymphocytes # 1.7 10^3/uL (0.8-4.8); Lymphocytes % 25.8 %; Mean Corpuscular HGB Conc 34.2 g/dL (30.0-36.0); Mean Corpuscular Hemoglobin 29.3 pg (28.0-34.0); Mean Corpuscular Volume 85.9 fL (81-99); Mean Platelet Volume 10.7 fL (7.4-10.4); Monocytes # 0.5 10^3/uL (0.2-0.9); Monocytes % 7.9 %; Neutrophils # 3.97 10^3/uL (1.8-7.7); Neutrophils % 61.2 %; Nucleated Red Blood Cells % 0 %; Platelet Count 273 10^3/cmm (130-400); Red Cell Distribution Width 12.6 % (12.1-15.1); White Blood Count 6.5 10^3/uL (4.0-10.0)
[2020-09-02 09:08] LABS: Estmated Average Glucose 105; Hemoglobin A1C 5.3 % (4.0-6.0)
[2020-09-02 09:32] LABS: 25 Hydroxy Vitamin D 14 ng/mL (30-100); Alanine Aminotransferase 19 U/L (0-33); Albumin Level 4.3 g/dL (3.5-5.2); Alkaline Phosphatase 88 IU/L (35-105); Aspartate Amino Transferase 14 U/L (0-32); Blood Urea Nitrogen 7 mg/dL (6-20); C Reactive Protein 3.4 mg/L (0.0-4.9); Calcium 8.5 mg/dL (8.5-10.5); Carbon Dioxide 23 mmol/L (22-29); Chloride 104 mmol/L (98-107); Chol HDL Ratio 4.57 mg/dL (0.0-4.40); Cholesterol 215 mg/dL (0-200); Globulin 2.5 g/dL (1.3-4.6); Glomerular Filtration Rate 138.1 mL/min (90-130); Glucose 102 mg/dL (65-115); HDL Cholesterol 47 mg/dL (60-100); LDL Cholesterol Calculated 147 mg/dL (50-129); LDL HDL Ratio 3.13 RATIO (0.00-3.22); Osmolality Calculated 282 mOsm/kg (285-295); Sodium 137 mmol/L (136-145); Thyroid Stimulating Hormone 2.18 uIU/mL (0.27-4.20); Total Bilirubin 0.4 mg/dL (0.15-1.2); Total Protein 6.8 g/dL (6.6-8.7); Triglycerides 106 mg/dL (0-150); Uric Acid 5.2 mg/dL (2.4-5.7); Vitamin B12 465 pg/mL (232-1245)
[2020-09-03 12:23] LABS: T4 Total 6.8 mcg/dL (5.1-11.9)
[2020-09-03 14:38] LABS: Anti-Nuclear Antibody Screen NEGATIVE (NEGATIVE)
== END 2020-09-02 08:14 | disposition home or self-care (01) ==
PROVIDERS: PCP Nurse Practitioner Family; Visit Provider Nurse Practitioner Family
DX: R53.1 Weakness (principal)
CPT/HCPCS: 36415; 80053; 80061; 82306; 82607; 83036; 84436; 84443; 84550; 85025; 86038; 86140; 86431